=== PATIENT | male | born 1955 | race Caucasian/White ===

== ENCOUNTER 2018-04-26 20:49 | Emergency (ER) | payer OTHER ==
[2018-04-26 21:52] LABS: BASO # 0.1 K/uL (0.0-0.2); BASO % 0.8 % (0.0-2.0); EOS # 0.3 K/uL (0.0-0.7); EOS % 3.2 % (0.0-4.0); HEMOGLOBIN 14.6 g/dL (12.0-18.0); LYMPH # 2.7 K/uL (1.0-4.3); LYMPH % 30.4 % (20.0-40.0); MEAN CELL VOLUME 87.7 fL (80.0-94.0); MEAN CORPUSCULAR HEMOGLOBIN 30.1 pg (27.0-31.0); MEAN CORPUSCULAR HGB CONC 34.3 g/dL (33.0-37.0); MEAN PLATELET VOLUME 9.8 fL (7.2-11.7); MONO # 0.7 K/uL (0.0-0.8); MONO % 8.2 % (0.0-10.0); NEUT # 5.1 K/uL (1.8-7.0); NEUT % 57.4 % (50.0-75.0); RBC 4.87 Mil/uL (4.40-5.90); RED CELL DISTRIBUTION WIDTH 14.7 % (11.5-14.5); WHITE BLOOD COUNT 8.9 K/uL (4.8-10.8)
[2018-04-26 21:59] LABS: INR 1.1; PROTHROMBIN TIME 11.5 SECONDS (9.7-12.2)
[2018-04-26 22:04] LABS: ALB/GLOB RATIO 1.2 (1.0-2.1); ALBUMIN 4.4 g/dL (3.5-5.0); ALT/SGPT 42 U/L (21-72); AST/SGOT 36 U/L (17-59); BLOOD UREA NITROGEN 18 mg/dL (9-20); CALCIUM 9.8 mg/dl (8.6-10.4); GFR AFRICAN-AMERICAN > 60; GFR NON-AFRICAN AMERICAN > 60
--- NOTE | 2018-04-26 22:10 | C.PDOC ---
History Of Present Illness 62 year old male with a Hx of diabetes and HTN presents to the ER with a complaint of left calf tenderness for the past 6 months. Patient states that initially it was swollen and he believed it would improve with rest but recently he has been having increasing pain. 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 Notes he has not been working secondary to the pain.Patient has not seen his doctor in "years", though he is complaint with his medications and notes his glucose is normally in the 140s. Denies trauma, SOB, n/v, headache, abdominal pain, or chest pain. Time Seen by Provider: 04/26/18 21:17 Chief Complaint (Nursing): Lower Extremity Problem/Injury History Per: Patient History/Exam Limitations: no limitations Onset/Duration Of Symptoms: Days Current Symptoms Are (Timing): Still Present Recent travel outside of the [place]: No Past Medical History Reviewed: Historical Data, Nursing Documentation, Vital Signs Vital Signs: Last Vital Signs Temp 98.1 F 04/27/18 00:05 Pulse 63 04/27/18 00:05 Resp 18 04/27/18 00:05 BP 161/93 H 04/27/18 00:05 Pulse Ox 98 04/27/18 01:54 - Medical History PMH: Diabetes, HTN Surgical History: No Surg Hx Family History: States: Unknown Family Hx - Social History Hx Alcohol Use: No Hx Substance Use: No - Immunization History Hx Tetanus Toxoid Vaccination: No Hx Influenza Vaccination: No Hx Pneumococcal Vaccination: No Review Of Systems Constitutional: Negative for: Fever, Chills Cardiovascular: Negative for: Chest Pain, Palpitations Respiratory: Negative for: Cough, Shortness of Breath Gastrointestinal: Negative for: Nausea, Vomiting Musculoskeletal: Positive for: Other (Left calf pain) Physical Exam - Physical Exam Appears: Non-toxic, No Acute Distress Skin: Normal Color, Warm, Dry Head: Atraumatic, Normacephalic Eye(s): bilateral: Normal Inspection, EOMI Nose: Normal Oral Mucosa: Moist Neck: Normal ROM, Supple Chest: Symmetrical, No Tenderness Cardiovascular: Rhythm Regular Respiratory: Normal Breath Sounds, No Rales, No Rhonchi, No Wheezing Gastrointestinal/Abdominal: Soft, No Tenderness Extremity: Normal ROM (x4), Calf Tenderness (Left), Capillary Refill (<2 seconds ), No Swelling Pulses: Right Dorsalis Pedis: Decreased Neurological/Psych: Oriented x3, Normal Speech Gait: Steady ED Course And Treatment - Laboratory Results Result Diagrams: 04/26/18 21:46 04/26/18 21:46 ECG: Interpreted By Me, Viewed By Me ECG Rhythm: Sinus Rhythm ECG Interpretation: Normal Rate From EC O2 Sat by Pulse Oximetry: 98 (Room air) Pulse Ox Interpretation: Normal - CT Scan/US CTA Other Rad Studies (CT/US): Read By Radiologist, Radiology Report Reviewed CT/US Interpretation: EXAM: CT Angiography Chest With Intravenous Contrast. CLINICAL HISTORY: 62 years old, male; Pain; Chest pain. TECHNIQUE: Axial computed tomographic angiography images of the chest with intravenous contrast using. pulmonary embolism protocol. All CT scans at this facility use at least one of these dose optimization. techniques: automated exposure control; mA and/ or kV adjustment per patient size (includes targeted. exams where dose is matched to clinical indication); or iterative reconstruction. MIP reconstructed images were created and reviewed. Coronal and sagittal reformatted images were created and reviewed. COMPARISON: No relevant prior studies available. FINDINGS: Pulmonary arteries: Unremarkable. No pulmonary embolism. Aorta: No acute findings. No thoracic aortic aneurysm nor dissection. Lungs: Unremarkable. No mass. No consolidation. Pleural space: Unremarkable. No significant effusion. No pneumothorax. Heart: Coronary calcifications. No significant pericardial effusion. No evidence of RV dysfunction. Bones/joints: No acute fracture. No dislocation. Soft tissues: Unremarkable. Lymph nodes: Unremarkable. No enlarged lymph nodes. Gallbladder and bile ducts: Cholelithiasis. IMPRESSION: No acute findings. Progress Note: Blood work and EKG ordered. Case discussed with Dr Bansal, agreed upon plan and treatment. Pt was instructed to return tomorrow for vascular. Disposition - Disposition Disposition: HOME/ ROUTINE Disposition Time: 00:38 Condition: STABLE Additional Instructions: Return to ER tomorrow morning at 9 am for vascular study. Follow up with your PMD in 1-2 days. Instructions: Muscle and Bone Pain (DC) Forms: [facility] [facility] (Lithuanian) - Clinical Impression Clinical Impression: Pain of left calf - PA / COSMETICIAN APPRENTICE / Resident Statement MD/DO has reviewed & agrees with the documentation as recorded. - Scribe Statement The provider has reviewed the documentation as recorded by the Scribe Peewee Santo All medical record entries made by the Scribe were at my direction and personally dictated by me. I have reviewed the chart and agree that the record accurately reflects my personal performance of the history, physical exam, medical decision making, and the department course for this patient. I have also personally directed, reviewed, and agree with the discharge instructions and disposition.
[2018-04-26] MEDS ORDERED: Enoxaparin 80 mg Syringe SC STA (22:28)
[2018-04-26] MEDS ORDERED: Iodixanol 320 MG/ML 100 ML BOTTLE IV ONE (22:43)
[2018-04-26] MEDS ORDERED: Enoxaparin 100 mg Syringe ONE (22:52)
[2018-04-27 00:08] VITALS: BP 161/93; PULSE 63; RESP 18; TEMP 98.1
[2018-04-27 00:40] VITALS: O2SAT 98
--- NOTE | 2018-04-27 10:32 | CT ---
PROCEDURE: CT Chest with contrast (Pulmonary Angiogram) HISTORY: Chest pain COMPARISON: None available. TECHNIQUE: Axial computed tomography images were obtained of the chest in the pulmonary arterial phase of enhancement. Coronal and sagittal reformatted images were created and reviewed. Intravenous contrast dose: 100 mL Visipaque 320 Radiation dose: Total exam DLP = 496.34 mGy-cm. This CT exam was performed using one or more of the following dose reduction techniques: Automated exposure control, adjustment of the mA and/or kV according to patient size, and/or use of iterative reconstruction technique. FINDINGS: PULMONARY ARTERIES: There are no filling defects in the pulmonary arteries to suggest acute pulmonary embolism. AORTA: No acute findings. No thoracic aortic aneurysm. LUNGS: The lungs are clear. No nodule, mass or pulmonary consolidation. PLEURAL SPACES: No pleural effusion or pneumothorax. HEART: The heart is normal in size. No significant pericardial effusion. There are coronary artery calcifications. LYMPH NODES: No pathologic lymphadenopathy. BONES, CHEST WALL: Within normal limits for the patient's age. No fracture or destructive lesion OTHER FINDINGS: There are multiple gallstones. The adrenal glands are normal. IMPRESSION: No CT evidence for acute pulmonary embolism. Clear lungs. Cholelithiasis. A preliminary report was provided by [facility].
== END 2018-04-27 00:59 | disposition home or self-care (01) ==
LOC: C.ER 20:49
DX: M79.662 Pain in left lower leg (principal); E11.9 Type 2 diabetes mellitus without complications; I10 Essential (primary) hypertension
CPT/HCPCS: 71275; 80053; 82550; 82553; 84484; 85025; 85378; 85610; 85730; 96372; 96374; 99284; J1650; J1885; Q9967

== ENCOUNTER 2018-04-28 14:39 | Emergency (ER) | payer OTHER ==
[2018-04-28 14:46] VITALS: BP 159/93; PULSE 90; RESP 20; TEMP 98; O2SAT 98
--- NOTE | 2018-04-28 15:56 | C.PDOC ---
History Of Present Illness Patient returns to ED today for doppler study of left leg. Patient reports intermittent left calf pain for months. He reports he was seen in ED last night and instructed to return today. Time Seen by Provider: 04/28/18 15:00 Chief Complaint (Nursing): Medical Clearance History Per: Patient History/Exam Limitations: no limitations Onset/Duration Of Symptoms: Days Past Medical History Reviewed: Historical Data, Nursing Documentation, Vital Signs Vital Signs: Last Vital Signs Temp 98 F 04/28/18 14:45 Pulse 90 04/28/18 14:45 Resp 20 04/28/18 14:45 BP 159/93 H 04/28/18 14:45 Pulse Ox 98 04/28/18 16:18 - Medical History PMH: Diabetes, HTN Family History: States: Unknown Family Hx - Social History Hx Alcohol Use: No Hx Substance Use: No - Immunization History Hx Tetanus Toxoid Vaccination: No Hx Influenza Vaccination: No Hx Pneumococcal Vaccination: No Review Of Systems Except As Marked, All Systems Reviewed And Found Negative. Musculoskeletal: Positive for: Leg Pain Physical Exam - Physical Exam Appears: Non-toxic, No Acute Distress Skin: Warm, Dry, No Rash, No Ecchymosis Head: Atraumatic, Normacephalic Eye(s): bilateral: Normal Inspection Neck: Normal ROM Chest: Symmetrical Cardiovascular: Rhythm Regular, No Murmur Respiratory: Normal Breath Sounds, No Rales, No Rhonchi, No Stridor, No Wheezing Extremity: Left: Other (mild left calf tenderness on deep palpation, no erythema or palpable cord), Bilateral: Atraumatic, Hips Non-Tender, No Pedal Edema, Normal Color And Temperature, Normal ROM Neurological/Psych: Oriented x3, Normal Speech Gait: Steady ED Course And Treatment O2 Sat by Pulse Oximetry: 98 Medical Decision Making Medical Decision Making: Previous records reviewed patient had labwork yesterday Dimer above 500. CTA was ordered and reviewed showing no PE. Venous doppler ordered and reviewed show no DVT or other abnormality. Patient remained well in no distress during ED evaluation. Vital signs stable. Patient advised to elevate legs when resting and take analgesic as needed. Patient stable for discharge. Disposition Counseled Patient/Family Regarding: Diagnosis, Need For Followup, Rx Given - Disposition Referrals: Мария Wei [Staff Provider] - Hay Oliver Jr., MD [Staff Provider] - Disposition: HOME/ ROUTINE Disposition Time: 15:54 Condition: STABLE Additional Instructions: Your Venous doppler study performed today does not show blood clot Please take pain medicine as needed and when resting elevate your legs Follow up with your regular doctor and vascular doctor Prescriptions: Ibuprofen [Motrin] 1 tab PO TID PRN #30 tab PRN Reason: Pain Instructions: Muscle and Bone Pain (DC) Forms: [facility] (Turkmen) - POA Present On Arrival: None - Clinical Impression Clinical Impression: Pain of left calf
--- NOTE | 2018-04-29 14:00 | VASCLAB ---
PROCEDURE: Left Lower Extremity Venous Duplex Exam. HISTORY: Calf pain for months, Dimer 504 PRIORS: None. TECHNIQUE: Left common femoral, femoral, popliteal and posterior tibial, peroneal and great saphenous veins were evaluated. Flow was assessed with color Doppler, compressibility, assessment of phasic flow and augmentation response. Report prepared by GLORY Patel FINDINGS: LEFT: 1. Common Femoral Vein: 1.1. Compressibility - Fully compressible: Thrombus - None : Flow - Phasic: Augmentation -Normal: Reflux - None. 2. Femoral Vein: 2.1. Compressibility - Fully compressible: Thrombus - None: Flow - Phasic: Augmentation -Normal: Reflux - None. 3. Popliteal Vein: 3.1. Compressibility - Fully compressible: Thrombus - None: Flow - Phasic: Augmentation -Normal: Reflux - None. 4. Posterior Tibial Vein: 4.1. Compressibility - Fully compressible: Thrombus - None: Flow - Phasic: Augmentation -Normal: Reflux - None. 5. Peroneal Vein: 5.1. Compressibility - Fully compressible: Thrombus - None: Flow - Phasic: Augmentation -Normal: Reflux - None. 6. Great Saphenous Vein: 6.1. Compressibility - Fully compressible: Thrombus - None: Flow - Phasic: Augmentation - Normal: Reflux - Mild. OTHER FINDINGS: IMPRESSION: No evidence of deep or superficial vein thrombosis of the left lower extremity with excellent venous flow. Mild valvular incompetence noted of the left great saphenous vein. Normal venous flow noted in the right common femoral vein.
--- NOTE | 2018-04-29 17:21 | CARD ---
APPROVED REPORT EKG Measurement Heart [id number] ID [id number] <Conclusion> Sinus rhythm with 1st degree AV block Left axis deviation Right bundle branch block Abnormal ECG
== END 2018-04-28 16:05 | disposition home or self-care (01) ==
LOC: C.ER 14:39
DX: M79.662 Pain in left lower leg (principal); E11.9 Type 2 diabetes mellitus without complications; I10 Essential (primary) hypertension